=== PATIENT | female | born 1940 | race African-American/Black ===

== ENCOUNTER → 2017-01-10 | Outpatient (CLI) | payer MEDICARE, OTHER ==
--- NOTE | 2017-01-10 18:04 | WOMENS IMAGING REPORT ---
EXAM DESCRIPTION: BILAT SCREENING MAMMO W/CAD COMPLETED DATE/TIME: 01/10/2017 8:44 am REASON FOR STUDY: SCREENING MAMMO Z12.31 ENCNTR SCREEN MAMMOGRAM FOR MALIGNANT NEOPLASM OF ÓSCAR COMPARISON: Multiple since 2008 TECHNIQUE: Standard craniocaudal and mediolateral oblique views of each breast recorded using digita l acquisition. LIMITATIONS: None. FINDINGS: Findings present which are benign by mammographic criteria. No suspicious masses, calcifi cations or architectural distortion. Pertinent benign findings: Stable breast parenchymal scarring in the right lateral breast post lumpec tim. Right axillary surgical clips. Read with the assistance of CAD. .[facility] - R2 Cenova Version 1.3 .[facility] - R2 Cenova Version 1.3 .[facility] - R2 Cenova Version 2.4 .[facility] [place]2 Cenova Version 2.4 .[facility] - R2 Doctorate Of Chiropractic Version 9.2 Benign mammographic findings may include one or more of the following: Smooth masses, popcorn/rim/co arse calcifications, asymmetries, post-procedure changes, and lesions with long-standing stability. IMPRESSION: BENIGN MAMMOGRAPHIC FINDINGS. BIRADS 2 BREAST DENSITY: a. The breasts are almost entirely fatty. BIRAD: 2 BENIGN FINDING(S) RECOMMENDATION: ROUTINE SCREENING COMMENT: The patient has been notified of the results by letter per SA requirements. Additional no tification policies are in place for contacting patient with suspicious or incomplete findings. Quality ID #[id number]: The [employer] recommends an annual screening mammogram for women aged 40 years or over. This facility utilizes a reminder system to ensure that all patients receive reminder letters, and/or direct phone calls for appointments. This includes reminders for routine scr eening mammograms, diagnostic mammograms, or other Breast Imaging Interventions when appropriate. Th is patient will be placed in the appropriate reminder system. The [employer] (ACR) has developed recommendations for screening MRI of the breast s in certain patient populations, to be used in conjunction with mammography. Breast MRI surveillanc e may be appropriate for women with more than 20% lifetime risk of developing breast cancer as deter mined by genetic testing, significant family history of the disease, or history of mantle radiation f or Hodgkins Disease. ACR Practice Guidelines 2008. TECHNICAL DOCUMENTATION: FINDING NUMBER: (1) ASSESSMENT: (1) JOB ID: [id number] [employer]- All Rights Reserved
== END ==
LOC: WI 08:17
PROVIDERS: ATTEND Specialist
DX: Z12.31 Encounter for screening mammogram for malignant neoplasm of breast (principal)
CPT/HCPCS: 77067; G0202

== ENCOUNTER → 2018-02-12 | Outpatient (CLI) | payer MEDICARE, OTHER ==
[2018-02-12 13:01] LABS: ANION GAP 10 (5-19); BLOOD UREA NITROGEN 15 mg/dL (7-20); CARBON DIOXIDE 32 mmol/L (22-30); CHLORIDE 102 mmol/L (98-107); GLUCOSE 101 mg/dL (75-110); POTASSIUM 4.5 mmol/L (3.6-5.0); SODIUM 143.6 mmol/L (137-145)
== END ==
LOC: OD 11:35
PROVIDERS: ATTEND Internal Medicine Nephrology
DX: N18.3 Chronic kidney disease, stage 3 (moderate) (principal)
CPT/HCPCS: 36415; 80048

== ENCOUNTER → 2018-03-05 | Outpatient (CLI) | payer MEDICARE, OTHER ==
--- NOTE | 2018-03-05 14:29 | RADIOLOGY REPORT (SQ) ---
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 TECHNIQUE: Images of the axial and proximal appendicular skeleton are obtained, along with lateral s kull and frontal chest films. LIMITATIONS: None. FINDINGS: AP CHEST: No bony findings. Chronic pulmonary scarring. Nodule in the left lung currentl y measures 14.7 mm, prior measurement 10.4 mm. LATERAL SKULL: No worrisome bone lesions. AP BOTH HUMERI: No worrisome bone lesions. TWO-VIEW LUMBAR SPINE: No worrisome bone lesions. TWO-VIEW THORACIC SPINE: No worrisome bone lesions. AP PELVIS: No worrisome bone lesions. AP BOTH FEMURS: No worrisome bone lesions. OTHER: No other significant finding. IMPRESSION: NO WORRISOME BONE LESIONS. NODULE IN THE LEFT LUNG HAS INCREASED IN SIZE SINCE NOVEMBER 2014. TECHNICAL DOCUMENTATION: JOB ID: [id number] [employer]- All Rights Reserved Reading location - IP/workstation name: [facility]
== END ==
LOC: RAD 11:54
PROVIDERS: ATTEND Internal Medicine Hematology & Oncology
DX: C90.00 Multiple myeloma not having achieved remission (principal)
CPT/HCPCS: 77075

== ENCOUNTER 2018-04-29 17:51 | Inpatient (IN) | payer MEDICARE, OTHER ==
[2018-04-29 18:45] LABS: ABSOLUTE EOSINOPHILS # (AUTO) 0.3 10^3/uL (0.0-0.6); ABSOLUTE LYMPHOCYTES (AUTO) 1.4 10^3/uL (0.5-4.7); ABSOLUTE MONOCYTES (AUTO) 1.6 10^3/uL (0.1-1.4); ABSOLUTE NEUT (AUTO) 9.6 10^3/uL (1.7-8.2); BASOPHILS % (AUTO) 0.2 % (0-2); EOSINOPHILS % (AUTO) 2.5 % (0-6); HEMATOCRIT 30.2 % (36.0-47.0); HEMOGLOBIN 9.9 g/dL (12.0-15.5); LYMPHOCYTES % (AUTO) 11.1 % (13-45); MEAN CORPUSCULAR HEMOGLOBIN 29.3 pg (27.0-33.4); MEAN CORPUSCULAR HGB CONC 32.6 g/dL (32.0-36.0); MEAN CORPUSCULAR VOLUME 90 fl (80-97); PLATELET COUNT 370 10^3/uL (150-450); RED BLOOD COUNT 3.37 10^6/uL (3.72-5.28); RED CELL DISTRIBUTION WIDTH 13.5 % (11.5-14.0); SEGMENTED NEUTROPHILS % (AUTO) 74.2 % (42-78); TOTAL CELLS COUNTED % (AUTO) 100 %; VENOUS BLOOD BASE EXCESS 1.8 mmol/L; VENOUS BLOOD HCO3 28.1 mmol/L (20-32); VENOUS BLOOD PCO2 51.5 mmHg (35-63); VENOUS BLOOD PH 7.36 (7.30-7.42); WHITE BLOOD COUNT 12.9 10^3/uL (4.0-10.5)
[2018-04-29 18:48] LABS: INTERNATIONAL RATION (INR) 0.97; PROTHROMBIN TIME 13.4 SEC (11.4-15.4)
[2018-04-29 18:52] LABS: ALANINE AMINOTRANSFERASE 19 U/L (9-52); ALBUMIN 3.6 g/dL (3.5-5.0); ALKALINE PHOSPHATASE 81 U/L (38-126); ANION GAP 10 (5-19); ASPARTATE AMINO TRANSFERASE 47 U/L (14-36); BILIRUBIN,DIRECT 0.4 mg/dL (0.0-0.4); BILIRUBIN,TOTAL 1.6 mg/dL (0.2-1.3); BLOOD UREA NITROGEN 41 mg/dL (7-20); CALCIUM 9.4 mg/dL (8.4-10.2); CARBON DIOXIDE 31 mmol/L (22-30); CHLORIDE 98 mmol/L (98-107); GLUCOSE 136 mg/dL (75-110); POTASSIUM 3.3 mmol/L (3.6-5.0); TOTAL PROTEIN 6.5 g/dL (6.3-8.2)
--- NOTE | 2018-04-29 19:14 | RADIOLOGY REPORT (SQ) ---
EXAM DESCRIPTION: CT HEAD WITHOUT COMPLETED DATE/TIME: 04/29/2018 7:04 pm REASON FOR STUDY: ams COMPARISON: None. TECHNIQUE: Axial images acquired through the brain without intravenous contrast. Images reviewed wi th bone, brain and subdural windows. Additional sagittal and coronal reconstructions were generated. Images stored on PACS. All CT scanners at this facility use dose modulation, iterative reconstruction, and/or weight based d osing when appropriate to reduce radiation dose to as low as reasonably achievable (ALARA). [facility]: Dose Right [facility]: CareDose [facility]: Dose Right [facility]: Teradose 4D [facility]: Smart SunLink RADIATION DOSE: CT Rad equipment meets quality standard of care and radiation dose reduction techniq ues were employed. CTDIvol: 53.2 mGy. DLP: 1044 mGy-cm. mGy. LIMITATIONS: None. FINDINGS: VENTRICLES: Normal size and contour. CEREBRUM: 1.6 x 1.6 cm left-sided calcified planum sphenoidale mass likely meningioma. No significan t mass effect. No midline shift. Normal driscoll/white matter differentiation. No areas of low density in the white matter. CEREBELLUM: No masses. No hemorrhage. No alteration of density. No evidence for acute infarction. EXTRAAXIAL SPACES: No fluid collections. No masses. ORBITS AND GLOBE: No intra- or extraconal masses. Normal contour of globe without masses. CALVARIUM: No fracture. PARANASAL SINUSES: No fluid or mucosal thickening. SOFT TISSUES: No mass or hematoma. OTHER: No other significant finding. 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 No acute intracranial process. EVIDENCE OF ACUTE STROKE: NO. COMMENT: Quality ID # [id number]: Final reports with documentation of one or more dose reduction techniques (e.g., Automated exposure control, adjustment of the mA and/or kV according to patient size, use of iterative reconstruction technique) TECHNICAL DOCUMENTATION: JOB ID: [id number] [employer]- All Rights Reserved Reading location - IP/workstation name: [email or web address]
--- NOTE | 2018-04-29 19:23 | RADIOLOGY REPORT (SQ) ---
EXAM DESCRIPTION: CHEST 2 VIEWS COMPLETED DATE/TIME: 04/29/2018 7:12 pm REASON FOR STUDY: ams COMPARISON: 08/29/2012 EXAM PARAMETERS: NUMBER OF VIEWS: two views TECHNIQUE: Digital Frontal and Lateral radiographic views of the chest acquired. RADIATION DOSE: NA LIMITATIONS: none FINDINGS: LUNGS AND PLEURA: Chronic scarring of the right upper lobe. No acute opacities. MEDIASTINUM AND HILAR STRUCTURES: No masses or contour abnormalities. HEART AND VASCULAR STRUCTURES: Heart normal size. No evidence for failure. BONES: No acute findings. HARDWARE: None in the chest. OTHER: No other significant finding. IMPRESSION: Chronic changes. No acute process. TECHNICAL DOCUMENTATION: JOB ID: [id number] [employer]- All Rights Reserved Reading location - IP/workstation name: [email or web address]
[2018-04-29 19:57] LABS: APPEARANCE,URINE SLIGHTLY-CLOUDY; BILIRUBIN,URINE NEGATIVE (NEGATIVE); COLOR,URINE YELLOW; GLUCOSE, URINE NEGATIVE (NEGATIVE); KETONES,URINE NEGATIVE (NEGATIVE); LEUKOCYTE ESTERASE,URINE NEGATIVE (NEGATIVE); NITRITE,URINE NEGATIVE (NEGATIVE); PROTEIN,URINE NEGATIVE (NEGATIVE); URINE SPECIFIC GRAVITY 1.013; UROBILINOGEN,URINE NEGATIVE mg/dL (<2.0)
[2018-04-29] MEDS ORDERED: NORMAL SALINE 500 ML IV ONE (19:57)
[2018-04-29] MEDS ORDERED: NORMAL SALINE 1000 ML 1,000 ML IV ONE (19:57)
[2018-04-29 20:56] LABS: URINE AMPHETAMINES SCREEN NEGATIVE; URINE BARBITURATES SCREEN NEGATIVE; URINE BENZODIAZEPINES SCREEN UNCONFIRMED POSITIVE; URINE COCAINE SCREEN NEGATIVE; URINE MARIJUANA (THC) SCREEN NEGATIVE; URINE METHADONE SCREEN NEGATIVE; URINE PHENCYCLIDINE SCREEN NEGATIVE
[2018-04-29] MEDS ORDERED: OXYCODONE HCL IR 5 MG TABLET PO PRN (21:40)
[2018-04-29] MEDS ORDERED: MAG HYDROX/AL HYDROX/SIMETH SUSP 30 ML UDCUP PO PRN (21:42)
[2018-04-29] MEDS ORDERED: IPRATROPIUM/ALBUTEROL 0.5-2.5 MG/3 ML AMPUL NEB PRN (21:42)
[2018-04-29] MEDS ORDERED: MAGNESIUM HYDROXIDE SUSP 30 ML UDCUP PO PRN (21:42)
[2018-04-29] MEDS ORDERED: NORMAL SALINE 1000 ML 1,000 ML IV SCH (21:45)
--- NOTE | 2018-04-29 21:50 | ER Document Report ---
ED General - General Chief Complaint: Leg Pain Stated Complaint: ALTERED MENTAL STATUS Time Seen by Provider: 04/29/18 18:22 TRAVEL OUTSIDE OF THE [place] IN LAST 30 DAYS: No - HPI Patient complains to provider of: Altered mental status left leg pain Notes: Patient coming in for altered mental status left leg pain. Patient states she had a total knee replacement on the 18th of the month now is having pain in the leg has been ongoing for the last 2 days. Otherwise patient is a no x1. Patient is aware that she is in also ER however is not aware of the year stating is 1917 where the president stating that you are already been and denies a clear why she came to the ER today. EMS reports the patient has not been acting like self according to family member. Most later during the patient's visit her was available to the patient has been confused has had physical therapy approximately 3 times however has been unable to get out of bed and also has had decreased p.o. intake of food and liquids. States patient has been compliant with her pain medication is not mi ssed any dosage. Patient otherwise is resting comfortably no signs of any obvious distress upon my evaluation. - Related Data Allergies/Adverse Reactions: No Known Allergies Allergy (Verified 04/29/18 17:54) Past Medical History - Social History Smoking Status: Unknown if Ever Smoked Chew tobacco use (# tins/day): No Frequency of alcohol use: None Drug Abuse: None Family History: Reviewed & Not Pertinent Patient has suicidal ideation: No Patient has homicidal ideation: No - Past Medical History Cardiac Medical History: Reports: Hx Hypercholesterolemia, Hx Hypertension - meds 34 yrs Denies: Hx Coronary Artery Disease, Hx Heart Attack Pulmonary Medical History: Denies: Hx Asthma, Hx Bronchitis, Hx COPD, Hx Pneumonia Neurological Medical History: Denies: Hx Cerebrovascular Accident, Hx Seizures Renal/ Medical History: Denies: Hx Peritoneal Dialysis Musculoskeletal Medical History: Reports Hx Arthritis - knees Past Surgical History: Reports: Hx Breast Surgery - lumpectomy right, Hx Orthopedic Surgery - ltkr - Immunizations Hx Diphtheria, Pertussis, Tetanus Vaccination: No Review of Systems - Review of Systems -: Yes ROS unobtainable due to patient's medical condition - Altered mental status Physical Exam - Vital signs Vitals: Resp 22 H 04/29/18 18:05 Interpretation: Normal - General General appearance: Appears well, Alert - HEENT Head: Normocephalic, Atraumatic Eyes: Normal Pupils: PERRL - Respiratory Respiratory status: No respiratory distress Chest status: Nontender Breath sounds: Normal Chest palpation: Normal - Cardiovascular Rhythm: Regular Heart sounds: Normal auscultation Murmur: No - Abdominal Inspection: Normal Distension: No distension Bowel sounds: Normal Tenderness: Nontender Organomegaly: No organomegaly - Back Back: Normal, Nontender - Extremities General upper extremity: Normal inspection, Nontender, Normal color, Normal ROM, Normal temperature General lower extremity: Normal weight bearing, Other - Right leg unaffected. Patient's left leg does have postsurgical scars with a surgical dressing in place. This was removed showing no signs of purulent drainage I am unable to express any purulent material along the staple line. There is various amounts of ecchymosis around the knee the leg itself is warm however the temperature does not vary from the surgical site to the distal or proximal leg to touch in the left leg is entirely swollen range of motion can be performed with the patient moving her leg to approximately 100 degrees somewhat painful - Neurological Neuro grossly intact: Yes Cognition: Normal Orientation: Disoriented to person, Disoriented to time, Disoriented to events [place] Coma Scale Eye Opening: Spontaneous Hallie Coma Scale Verbal: Oriented [place] Coma Scale Motor: Obeys Commands [place] Coma Scale Total: 15 Speech: Normal Motor strength normal: LUE, RUE, LLE, RLE Sensory: Normal - Psychological Associated symptoms: Normal affect, Normal mood - Skin Skin Temperature: Warm Skin Moisture: Dry Skin Color: Normal Course - Re-evaluation Re-evalutation: 04/29/18 23:09 Laboratory studies show slight elevation in the patient's BUN/creatinine patient does have a chronic renal insufficiency more likely this is underlying dehydration. Patient laboratory studies not show any overt signs of infection there is no pneumonia chest x-ray no UTI. Did not believe that the surgical wound itself is infected at this time. Patient is positive for opiates and benzodiazepines which are not on the patient's medication list that I received. More likely altered mental status and confusion that the family is concerned about is medication related. Because of the continued altered mental status I did discuss the case with the hospital staff who was at bedside evaluate the patient concern for the swelling of the knee requested a possible CT scan and consult with orthopedics I discussed the case with Dr. Lagunas on the phone. Highly doubt that the patient has an infected knee at this juncture and does not recommend CT scan agrees to consult on the patient was admitted to the hospital staff and states if there is any signs of infection or need for transfer this will address this in the morning. Hospitalist agrees to admit the patient to the telemetry - Vital Signs Vital signs: Temp Pulse Resp BP Pulse Ox 97.9 F 22 H 141/62 H 100 04/29/18 18:18 04/29/18 22:01 04/29/18 22:00 04/29/18 22:01 - Laboratory Result Diagrams: 04/29/18 18:05 04/29/18 18:05 Laboratory results interpreted by me: 04/29/18 04/29/18 04/29/18 18:05 18:05 18:05 WBC 12.9 H RBC 3.37 L Hgb 9.9 L Hct 30.2 L Lymphocytes % 11.1 L Absolute Neutrophils 9.6 H Absolute Monocytes 1.6 H Potassium 3.3 L Carbon Dioxide 31 H BUN 41 H Creatinine 2.33 H Est GFR ( Amer) 24 L Est GFR (Non-Af Amer) 20 L Glucose 136 H POC Glucose Magnesium Total Bilirubin 1.6 H AST 47 H Creatine Kinase 320 H 04/29/18 04/29/18 18:05 18:51 WBC RBC Hgb Hct Lymphocytes % Absolute Neutrophils Absolute Monocytes Potassium Carbon Dioxide BUN Creatinine Est GFR ( Amer) Est GFR (Non-Af Amer) Glucose POC Glucose 129 H Magnesium 2.5 H Total Bilirubin AST Creatine Kinase Discharge - Discharge Clinical Impression: Altered mental status, History of left knee replacement, Dehydration, Acute on chronic renal insufficiency Condition: Good Disposition: ADMITTED INPATIENT Admitting Provider: Deidra June
[2018-04-29] MEDS ORDERED: NORMAL SALINE 1000 ML 1,000 ML IV PRN (22:00)
[2018-04-29] MEDS ORDERED: POTASSIUM CHLORIDE 10 MEQ CAPSULE.ER PO ONE (22:05)
[2018-04-29] MEDS: ATORVASTATIN CALCIUM 10 MG TABLET PO SCH (22:08)
[2018-04-29] MEDS: HEPARIN SOD (PORCINE) 5,000 UNIT/ML 1 ML SYRINGE SUBCUT SCH (22:09)
--- NOTE | 2018-04-29 22:10 | EKG REPORT ---
SEVERITY:- BORDERLINE ECG - SINUS RHYTHM PROBABLE LEFT ATRIAL ABNORMALITY : Confirmed by: David Dang MD 29-Apr-2018 22:10:11
[2018-04-30 00:55] LABS: CREATINE KINASE MB 0.78 ng/mL (<4.55); TROPONIN I 0.02 ng/mL
[2018-04-30] MEDS: ACETAMINOPHEN 325 MG TABLET PO PRN ×3 (05:57→17:28)
[2018-04-30] MEDS: HEPARIN SOD (PORCINE) 5,000 UNIT/ML 1 ML SYRINGE SUBCUT SCH ×3 (05:57→21:57)
--- NOTE | 2018-04-30 06:15 | PDOC H&P ---
History of Present Illness Admission Date/PCP: 04/29/18 21:50 ADORE MOHR MD Patient complains of: Confusion History of Present Illness: CAMILLE LOVE is a 77 year old female with a past medical history of hypertension who is postop day 6 from a left total knee at [facility]. She was discharged home with her who is noted confusion and poor p.o. intake over the last 48 hours prompting evaluation emergency room where she is found to have delirium, pain and swelling to the left knee without dehiscence, leukocytosis without fever, hypokalemia and acute renal failure. Patient denies headache, blurred vision, focal weakness, chest pain nausea vomiting shortness of breath. Patient's is at bedside who admits to compliance with medication regiment including benzodiazepine and oxycodone as needed but given as scheduled. She receives supportive care and referred to the hospitalist for admission. 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 Hematology: Denies: Anemia Past Surgical History Past Surgical History: Reports: Orthopedic Surgery - ltkr Social History Information Source: Relative, [facility] Records Lives with: Spouse/Significant other Smoking Status: Never Smoker Frequency of Alcohol Use: None Drugs: None - Advance Directive Resuscitation Status: Full Code Family History Family History: Other - Unobtainable Parental Family History Reviewed: No Children Family History Reviewed: No - Unobtainable Sibling(s) Family History Reviewed.: No - Unobtainable Medication/Allergy Home Medications: Amlodipine Besylate [Norvasc 5 mg Tablet] 5 mg PO DAILY 08/29/12 Aspirin [Ecotrin 81 mg EC Tablet] 81 mg PO DAILY 08/29/12 Gabapentin [Neurontin 300 Mg Capsule] 900 mg PO TID 08/29/12 Pravastatin Sodium [Pravachol] 20 mg PO DAILY 08/29/12 Cholecalciferol (Vitamin D3) [Vitamin D] 2,000 unit PO DAILY 04/29/18 Latanoprost/Pf [Latanoprost 0.005% Eye Drop] 7.5 ml OP QHS 04/29/18 Losartan/Hydrochlorothiazide [Hyzaar 100-12.5 Tablet] 1 each PO DAILY 04/29/18 Oxycodone HCl [Oxy-Ir 5 mg Tablet] 5 mg PO Q6HP PRN 04/29/18 Timolol [Betimol] 5 ml OP DAILY 04/29/18 Allergies/Adverse Reactions: No Known Allergies Allergy (Verified 04/29/18 17:54) Review of Systems ROS unobtainable: Due to mental status - Delirium Physical Exam Vital Signs: Temp Pulse Resp BP Pulse Ox 98.9 F 79 17 129/61 H 96 04/30/18 04:20 04/30/18 04:20 04/30/18 04:20 04/30/18 04:20 04/30/18 04:20 Intake & Output 04/28/18 04/29/18 04/30/18 11:59 11:59 11:59 Intake Total 500 Balance 500 Weight 77 kg General appearance: PRESENT: cooperative, disheveled, mild distress, obese, well-developed, well-nourished Head exam: PRESENT: atraumatic, normocephalic Eye exam: PRESENT: conjunctiva pink, EOMI, PERRLA. ABSENT: scleral icterus Ear exam: PRESENT: normal external ear exam Mouth exam: PRESENT: moist, tongue midline Neck exam: ABSENT: carotid bruit, JVD, lymphadenopathy, thyromegaly Respiratory exam: PRESENT: clear to auscultation rosemary. ABSENT: rales, rhonchi, wheezes Cardiovascular exam: PRESENT: RRR. ABSENT: diastolic murmur, rubs, systolic murmur Pulses: PRESENT: normal dorsalis pedis pul Vascular exam: PRESENT: normal capillary refill GI/Abdominal exam: PRESENT: normal bowel sounds, soft. ABSENT: distended, gua rding, mass, organolmegaly, rebound, tenderness Rectal exam: PRESENT: deferred Extremities exam: PRESENT: full ROM, joint swelling - Left knee swelling but without dehiscence, tenderness, +1 edema. ABSENT: calf tenderness, pedal edema Neurological exam: PRESENT: alert, altered, awake, oriented to person, oriented to place, oriented to situation, CN II-XII grossly intact. ABSENT: oriented to time Psychiatric exam: PRESENT: normal mood, unusual affect. ABSENT: homicidal ideation, suicidal ideation Skin exam: PRESENT: dry, erythema, intact, warm. ABSENT: cyanosis, rash Results Laboratory Results: 04/29/18 18:05 04/29/18 18:05 04/29/18 04/29/18 04/29/18 18:05 18:05 18:05 WBC 12.9 H RBC 3.37 L Hgb 9.9 L Hct 30.2 L MCV 90 MCH 29.3 MCHC 32.6 RDW 13.5 Plt Count 370 Seg Neutrophils % 74.2 Lymphocytes % 11.1 L Monocytes % 12.0 Eosinophils % 2.5 Basophils % 0.2 Absolute Neutrophils 9.6 H Absolute Lymphocytes 1.4 Absolute Monocytes 1.6 H Absolute Eosinophils 0.3 Absolute Basophils 0.0 VBG pH VBG pCO2 VBG HCO3 VBG Base Excess Sodium 139.0 Potassium 3.3 L Chloride 98 Carbon Dioxide 31 H Anion Gap 10 BUN 41 H Creatinine 2.33 H Est GFR ( Amer) 24 L Est GFR (Non-Af Amer) 20 L Glucose 136 H Lactic Acid 1.1 Calcium 9.4 Magnesium Total Bilirubin 1.6 H AST 47 H ALT 19 Alkaline Phosphatase 81 Total Protein 6.5 Albumin 3.6 TSH Urine Color Urine Appearance Urine pH Ur Specific [place] Urine Protein Urine Glucose (UA) Urine Ketones Urine Blood Urine Nitrite Ur Leukocyte Esterase Urine WBC (Auto) Urine RBC (Auto) 04/29/18 04/29/18 04/29/18 18:05 18:05 18:05 WBC RBC Hgb Hct MCV MCH MCHC RDW Plt Count Seg Neutrophils % Lymphocytes % Monocytes % Eosinophils % Basophils % Absolute Neutrophils Absolute Lymphocytes Absolute Monocytes Absolute Eosinophils Absolute Basophils VBG pH 7.36 VBG pCO2 51.5 VBG HCO3 28.1 VBG Base Excess 1.8 Sodium Potassium Chloride Carbon Dioxide Anion Gap BUN Creatinine Est GFR ( Amer) Est GFR (Non-Af Amer) Glucose Lactic Acid Calcium Magnesium 2.5 H Total Bilirubin AST ALT Alkaline Phosphatase Total Protein Albumin TSH 0.64 Urine Color Urine Appearance Urine pH Ur Specific [place] Urine Protein Urine Glucose (UA) Urine Ketones Urine Blood Urine Nitrite Ur Leukocyte Esterase Urine WBC (Auto) Urine RBC (Auto) 04/29/18 19:33 WBC RBC Hgb Hct MCV MCH MCHC RDW Plt Count Seg Neutrophils % Lymphocytes % Monocytes % Eosinophils % Basophils % Absolute Neutrophils Absolute Lymphocytes Absolute Monocytes Absolute Eosinophils Absolute Basophils VBG pH VBG pCO2 VBG HCO3 VBG Base Excess Sodium Potassium Chloride Carbon Dioxide Anion Gap BUN Creatinine Est GFR ( Amer) Est GFR (Non-Af Amer) Glucose Lactic Acid Calcium Magnesium Total Bilirubin AST ALT Alkaline Phosphatase Total Protein Albumin TSH Urine Color YELLOW Urine Appearance SLIGHTLY-CLOUDY Urine pH 5.0 Ur Specific [place] 1.013 Urine Protein NEGATIVE Urine Glucose (UA) NEGATIVE Urine Ketones NEGATIVE Urine Blood NEGATIVE Urine Nitrite NEGATIVE Ur Leukocyte Esterase NEGATIVE Urine WBC (Auto) 1 Urine RBC (Auto) 1 04/29/18 04/29/18 04/30/18 18:05 18:05 00:17 Creatine Kinase 320 H 350 H CK-MB (CK-2) Troponin I 0.023 04/30/18 00:17 Creatine Kinase CK-MB (CK-2) 0.78 Troponin I 0.020 Impressions: Chest X-Ray 04/29/18 18:41 IMPRESSION: Chronic changes. No acute process. 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 No acute intracranial process. EVIDENCE OF ACUTE STROKE: NO. Assessment & Plan - Diagnosis (1) Encephalopathy Is this a current diagnosis for this admission?: Yes Plan: Likely secondary to scheduled rather than as needed oxycodone and benzodiazep ine. Supportive care with reduction in oxycodone and benzodiazepine frequency (2) Acute renal failure Is this a current diagnosis for this admission?: Yes Plan: Appears prerenal, IV fluid challenge, avoid nephrotoxic meds and doses reevaluate chemistry (3) Hypokalemia Is this a current diagnosis for this admission?: Yes Plan: Evaluate magnesium, replete both as needed follow-up chemistry (4) History of left knee replacement Is this a current diagnosis for this admission?: Yes Plan: Postop day 6 of the left total knee, some joint swelling and persistent pain, consult orthopedic surgery. - Time Time Spent: 50 to 70 Minutes - Inpatient Certification Medical Necessity: Need Close Monitoring Due to Risk of Patient Decompensation
[2018-04-30 06:46] LABS: ABSOLUTE EOSINOPHILS # (AUTO) 0.2 10^3/uL (0.0-0.6); ABSOLUTE LYMPHOCYTES (AUTO) 0.9 10^3/uL (0.5-4.7); ABSOLUTE MONOCYTES (AUTO) 1.1 10^3/uL (0.1-1.4); ABSOLUTE NEUT (AUTO) 8.2 10^3/uL (1.7-8.2); BASOPHILS % (AUTO) 0.2 % (0-2); EOSINOPHILS % (AUTO) 2.2 % (0-6); HEMOGLOBIN 9.2 g/dL (12.0-15.5); LYMPHOCYTES % (AUTO) 8.8 % (13-45); MEAN CORPUSCULAR HEMOGLOBIN 29.5 pg (27.0-33.4); MEAN CORPUSCULAR HGB CONC 33.1 g/dL (32.0-36.0); MEAN CORPUSCULAR VOLUME 89 fl (80-97); MONOCYTES % (AUTO) 10.3 % (3-13); PLATELET COUNT 327 10^3/uL (150-450); RED BLOOD COUNT 3.14 10^6/uL (3.72-5.28); RED CELL DISTRIBUTION WIDTH 13.2 % (11.5-14.0); SEGMENTED NEUTROPHILS % (AUTO) 78.5 % (42-78); TOTAL CELLS COUNTED % (AUTO) 100 %; WHITE BLOOD COUNT 10.4 10^3/uL (4.0-10.5)
[2018-04-30 07:08] LABS: ANION GAP 11 (5-19); BLOOD UREA NITROGEN 34 mg/dL (7-20); CALCIUM 8.8 mg/dL (8.4-10.2); CARBON DIOXIDE 26 mmol/L (22-30); CHLORIDE 105 mmol/L (98-107); GLUCOSE 116 mg/dL (75-110); POTASSIUM 3.8 mmol/L (3.6-5.0); SODIUM 141.6 mmol/L (137-145)
[2018-04-30 07:17] LABS: CREATINE KINASE MB 0.78 ng/mL (<4.55); TROPONIN I 0.025 ng/mL
--- NOTE | 2018-04-30 08:52 | XCELERA REPORT ---
[address] [id number] Lower Extremity Venous Evaluation Procedure: Color flow and duplex imaging of the veins of the left lower extremity as well as the right Common Femoral vein. Right Sided Venous Evaluation The right common femoral vein is fully compressible. Spontaneous and phasic flow is present in the right common femoral vein. Left Sided Venous Evaluation Avascular lucencies in the subcutaneous tissues of the leg. Normal vessel filling wall to wall, compression and augmentation as well as Colour flow down to the infrageniculate veins. Critical Findings Called in to Dr Garner at about 2100 hours. Interpretation Summary No duplex evidence of DVT or obstruction in the left lower extremity nor in the right Common Femoral vein. Subcutaneous edema noted in the left leg. Name: CAMILLE LOVE Age: 77 yrs Gender: Female : 1940 Patient Status: Emergency Patient Location: ER Study Date: 04/29/2018 07:48 PM Reason For Study: pain left leg Ordering Physician: KAROLYN POLANCO Performed By: Zoltan Daniels : KAROLYN POLANCO > Hussain Dewitt
[2018-04-30] MEDS: AMLODIPINE BESYLATE 5 MG TABLET PO SCH (10:36)
[2018-04-30] MEDS: NORMAL SALINE 1000 ML 1,000 ML IV PRN ×2 (10:36→17:30)
[2018-04-30] MEDS: ASPIRIN 81 MG TABLET, ENT COATED PO SCH (10:37)
[2018-04-30] MEDS: GABAPENTIN 300 MG CAPSULE PO SCH ×3 (10:38→17:28)
[2018-04-30] MEDS: CHOLECALCIFEROL (D3) 1,000 UNIT TABLET PO SCH (10:38)
--- NOTE | 2018-04-30 11:32 | PDOC PROGRESS REPORT ---
Subjective Progress Note for:: 04/30/18 Subjective:: This is 77 years old black female patient with past medical history of hypertension, hyperlipidemia presented with chief complaint of altered mental status. In a patient also found to have acute kidney injury, and hypokalemia of note patient had had left knee total arthroplasty at [facility] about 7 days ago. This morning I seen patient sitting by the bedside and participating with physical therapy her involved knee is swollen and tender I consulted Dr. De La Paz to evaluate the patient. Her morning labs shows corrected hypokalemia and her creatinine is trending down. Reason For Visit: AMS ARF KNEE PAIN Physical Exam Vital Signs: Temp Pulse Resp BP Pulse Ox 97.4 F 81 16 134/58 H 99 04/30/18 08:15 04/30/18 08:15 04/30/18 08:15 04/30/18 08:15 04/30/18 08:15 Intake & Output 04/29/18 04/30/18 05/01/18 06:59 06:59 06:59 Intake Total 500 Balance 500 Weight 77 kg General appearance: PRESENT: no acute distress Eye exam: PRESENT: conjunctiva pink Mouth exam: PRESENT: moist Neck exam: ABSENT: carotid bruit, JVD, lymphadenopathy, thyromegaly Respiratory exam: PRESENT: clear to auscultation rosemary. ABSENT: rales, rhonchi, wheezes Cardiovascular exam: PRESENT: RRR. ABSENT: diastolic murmur, rubs, systolic murmur GI/Abdominal exam: PRESENT: normal bowel sounds, soft. ABSENT: distended, guarding, mass, organolmegaly, rebound, tenderness Extremities exam: PRESENT: other - Postop #7 for left total knee arthroplasty. Metal clips are in the knee looks like swollen and tender. Neurological exam: PRESENT: alert, awake, oriented to situation Psychiatric exam: PRESENT: normal mood Results Laboratory Results: 04/30/18 06:18 04/30/18 06:18 04/29/18 04/29/18 04/29/18 18:05 18:05 18:05 WBC 12.9 H RBC 3.37 L Hgb 9.9 L Hct 30.2 L MCV 90 MCH 29.3 MCHC 32.6 RDW 13.5 Plt Count 370 Seg Neutrophils % 74.2 Lymphocytes % 11.1 L Monocytes % 12.0 Eosinophils % 2.5 Basophils % 0.2 Absolute Neutrophils 9.6 H Absolute Lymphocytes 1.4 Absolute Monocytes 1.6 H Absolute Eosinophils 0.3 Absolute Basophils 0.0 VBG pH VBG pCO2 VBG HCO3 VBG Base Excess Sodium 139.0 Potassium 3.3 L Chloride 98 Carbon Dioxide 31 H Anion Gap 10 BUN 41 H Creatinine 2.33 H Est GFR ( Amer) 24 L Est GFR (Non-Af Amer) 20 L Glucose 136 H Lactic Acid 1.1 Calcium 9.4 Magnesium Total Bilirubin 1.6 H AST 47 H ALT 19 Alkaline Phosphatase 81 Total Protein 6.5 Albumin 3.6 TSH Urine Color Urine Appearance Urine pH Ur Specific [place] Urine Protein Urine Glucose (UA) Urine Ketones Urine Blood Urine Nitrite Ur Leukocyte Esterase Urine WBC (Auto) Urine RBC (Auto) 04/29/18 04/29/18 04/29/18 18:05 18:05 18:05 WBC RBC Hgb Hct MCV MCH MCHC RDW Plt Count Seg Neutrophils % Lymphocytes % Monocytes % Eosinophils % Basophils % Absolute Neutrophils Absolute Lymphocytes Absolute Monocytes Absolute Eosinophils Absolute Basophils VBG pH 7.36 VBG pCO2 51.5 VBG HCO3 28.1 VBG Base Excess 1.8 Sodium Potassium Chloride Carbon Dioxide Anion Gap BUN Creatinine Est GFR ( Amer) Est GFR (Non-Af Amer) Glucose Lactic Acid Calcium Magnesium 2.5 H Total Bilirubin AST ALT Alkaline Phosphatase Total Protein Albumin TSH 0.64 Urine Color Urine Appearance Urine pH Ur Specific [place] Urine Protein Urine Glucose (UA) Urine Ketones Urine Blood Urine Nitrite Ur Leukocyte Esterase Urine WBC (Auto) Urine RBC (Auto) 04/29/18 04/30/18 04/30/18 19:33 06:18 06:18 WBC 10.4 RBC 3.14 L Hgb 9.2 L Hct 28.0 L MCV 89 MCH 29.5 MCHC 33.1 RDW 13.2 Plt Count 327 Seg Neutrophils % 78.5 H Lymphocytes % 8.8 L Monocytes % 10.3 Eosinophils % 2.2 Basophils % 0.2 Absolute Neutrophils 8.2 Absolute Lymphocytes 0.9 Absolute Monocytes 1.1 Absolute Eosinophils 0.2 Absolute Basophils 0.0 VBG pH VBG pCO2 VBG HCO3 VBG Base Excess Sodium 141.6 Potassium 3.8 Chloride 105 Carbon Dioxide 26 Anion Gap 11 BUN 34 H Creatinine 1.62 H Est GFR ( Amer) 37 L Est GFR (Non-Af Amer) 31 L Glucose 116 H Lactic Acid Calcium 8.8 Magnesium Total Bilirubin AST ALT Alkaline Phosphatase Total Protein Albumin TSH Urine Color YELLOW Urine Appearance SLIGHTLY-CLOUDY Urine pH 5.0 Ur Specific [place] 1.013 Urine Protein NEGATIVE Urine Glucose (UA) NEGATIVE Urine Ketones NEGATIVE Urine Blood NEGATIVE Urine Nitrite NEGATIVE Ur Leukocyte Esterase NEGATIVE Urine WBC (Auto) 1 Urine RBC (Auto) 1 04/29/18 04/29/18 04/30/18 18:05 18:05 00:17 Creatine Kinase 320 H 350 H CK-MB (CK-2) Troponin I 0.023 04/30/18 04/30/18 04/30/18 00:17 06:18 06:18 Creatine Kinase 350 H CK-MB (CK-2) 0.78 0.78 Troponin I 0.020 0.025 Impressions: Chest X-Ray 04/29/18 18:41 IMPRESSION: Chronic changes. No acute process. 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 No acute intracranial process. EVIDENCE OF ACUTE STROKE: NO. Assessment & Plan - Diagnosis (1) AMS due to drug-induced encephalopathy Is this a current diagnosis for this admission?: Yes Plan: Z encephalopathy is due to narcotic analgesics. Currently her mental status is improving. (2) Acute renal failure Is this a current diagnosis for this admission?: Yes Plan: Kidney function is improving. Continue hydration with normal saline. (3) Hypokalemia Is this a current diagnosis for this admission?: Yes Plan: Corrected (4) Postop #7 L knee arthroplasty Is this a current diagnosis for this admission?: Yes Plan: Since the knee shows some swelling and inflammation orthopedic surgeon consulted. Physical therapist recommended short-term acute rehab placement.
[2018-04-30 12:55] LABS: CREATINE KINASE MB 0.77 ng/mL (<4.55); TROPONIN I 0.017 ng/mL
[2018-04-30] MEDS: OXYCODONE HCL IR 5 MG TABLET PO PRN ×2 (14:06→23:39)
[2018-04-30] MEDS: ATORVASTATIN CALCIUM 10 MG TABLET PO SCH (21:57)
[2018-05-01] MEDS: NORMAL SALINE 1000 ML 1,000 ML IV PRN (04:48)
[2018-05-01] MEDS: HEPARIN SOD (PORCINE) 5,000 UNIT/ML 1 ML SYRINGE SUBCUT SCH ×3 (05:53→21:36)
--- NOTE | 2018-05-01 06:40 | PDOC CONSULTATION ---
Consultation Consult Date: 05/01/18 Consult reason:: Status post left total knee arthroplasty April 24, 2018 History of Present Illness Admission Date/PCP: 04/29/18 21:50 ADORE MOHR MD History of Present Illness: CAMILLE LOVE is a 77 year old female Patient is a 77-year-old black female status post left primary total knee arthroplasty in [place] on April 24, 2018. She was subsequently discharged home with home health services the next day. The states that he and his daughter want or unable to get her out of bed. 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 Hematology: Denies: Anemia Past Surgical History Past Surgical History: Reports: Orthopedic Surgery - ltkr Social History Information Source: Patient, H Records Lives with: Spouse/Significant other Smoking Status: Never Smoker Frequency of Alcohol Use: None Drugs: None - Advance Directive Resuscitation Status: Full Code Family History Family History: None, Other - Unobtainable Parental Family History Reviewed: No Children Family History Reviewed: No Sibling(s) Family History Reviewed.: No Medication/Allergy Home Medications: Amlodipine Besylate [Norvasc 5 mg Tablet] 5 mg PO DAILY 08/29/12 Aspirin [Ecotrin 81 mg EC Tablet] 81 mg PO DAILY 08/29/12 Gabapentin [Neurontin 300 Mg Capsule] 900 mg PO Q8 08/29/12 Pravastatin Sodium [Pravachol] 20 mg PO QHS 08/29/12 Cholecalciferol (Vitamin D3) [Vitamin D] 2,000 unit PO Q48H 04/29/18 Losartan/Hydrochlorothiazide [Hyzaar 100-12.5 Tablet] 1 each PO DAILY 04/29/18 Oxycodone HCl [Oxy-Ir 5 mg Tablet] 15 mg PO Q6HP PRN 04/29/18 Timolol [Betimol] 1 drop OU BID 04/29/18 Dorzolamide HCl/Pf [Dorzolamide 2% Eye Drop] 1 drop OU BID 04/30/18 Allergies/Adverse Reactions: No Known Allergies Allergy (Verified 04/29/18 17:54) Review of Systems All systems: as per [facility] Physical Exam Vital Signs: Temp Pulse Resp BP Pulse Ox 36.7 C 73 19 148/66 H 98 04/30/18 23:24 05/01/18 02:00 04/30/18 23:24 04/30/18 23:24 04/30/18 23:24 Intake & Output 04/29/18 04/30/18 05/01/18 06:59 06:59 06:59 Intake Total 500 3577 Output Total 800 Balance 500 2777 Weight 77 kg 83.6 kg Physical Exam: Overweight middle-aged black female lying in bed in modest distress. She is accompanied by her who is in the recliner next to the bed. General appearance: PRESENT: no acute distress, mild distress, well-developed, well-nourished Head exam: PRESENT: normocephalic Respiratory exam: PRESENT: unlabored Cardiovascular exam: PRESENT: RRR Pulses: PRESENT: +1 pedal pulses bilateral Vascular exam: PRESENT: normal capillary refill GI/Abdominal exam: PRESENT: soft Rectal exam: PRESENT: deferred Extremities exam: PRESENT: other - Left knee dressing taken down. The suture line is well approximated melyssa is currently dry. There is a fair amount of dried blood on which is cleaned with peroxide. Surrounding soft tissues with a modest amount of ecchymosis. The wound itself is well approximated and dry wit hout erythema but with ongoing tenderness. A dry OpSite dressing is placed. Neurological exam: PRESENT: alert, awake, oriented to person, oriented to place, oriented to time, oriented to situation. ABSENT: motor sensory deficit Psychiatric exam: PRESENT: appropriate affect, normal mood. ABSENT: homicidal ideation, suicidal ideation Skin exam: PRESENT: dry, intact, warm. ABSENT: cyanosis, rash Results Laboratory Results: 04/30/18 06:18 04/30/18 04/30/18 06:18 06:18 WBC 10.4 RBC 3.14 L Hgb 9.2 L Hct 28.0 L MCV 89 MCH 29.5 MCHC 33.1 RDW 13.2 Plt Count 327 Seg Neutrophils % 78.5 H Lymphocytes % 8.8 L Monocytes % 10.3 Eosinophils % 2.2 Basophils % 0.2 Absolute Neutrophils 8.2 Absolute Lymphocytes 0.9 Absolute Monocytes 1.1 Absolute Eosinophils 0.2 Absolute Basophils 0.0 Sodium 141.6 Potassium 3.8 Chloride 105 Carbon Dioxide 26 Anion Gap 11 BUN 34 H Creatinine 1.62 H Est GFR ( Amer) 37 L Est GFR (Non-Af Amer) 31 L Glucose 116 H Calcium 8.8 04/29/18 04/29/18 04/30/18 18:05 18:05 00:17 Creatine Kinase 320 H 350 H CK-MB (CK-2) Troponin I 0.023 04/30/18 04/30/18 04/30/18 00:17 06:18 06:18 Creatine Kinase 350 H CK-MB (CK-2) 0.78 0.78 Troponin I 0.020 0.025 04/30/18 04/30/18 12:15 12:15 Creatine Kinase 305 H CK-MB (CK-2) 0.77 Troponin I 0.017 Impressions: Chest X-Ray 04/29/18 18:41 IMPRESSION: Chronic changes. No acute process. 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 No acute intracranial process. EVIDENCE OF ACUTE STROKE: NO. Status: Imported from PACS Assessment & Plan - Diagnosis (1) History of left knee replacement Is this a current diagnosis for this admission?: Yes Plan: Patient can be mobilized with physical therapy on a weightbearing as tolerated basis. This is already begun although the patient has not yet made it to a point where she can ambulate outside the room. Physical therapy has recommended subacute rehabilitation placement and I think the family is amenable to this. - Time Time Spent: 50 to 70 Minutes Anticipated discharge: SNF Within: Other
[2018-05-01 06:52] LABS: ANION GAP 8 (5-19); BLOOD UREA NITROGEN 23 mg/dL (7-20); CALCIUM 9.3 mg/dL (8.4-10.2); CARBON DIOXIDE 27 mmol/L (22-30); CHLORIDE 107 mmol/L (98-107); GLUCOSE 107 mg/dL (75-110); POTASSIUM 3.9 mmol/L (3.6-5.0); SODIUM 141.8 mmol/L (137-145)
[2018-05-01] MEDS: OXYCODONE HCL IR 5 MG TABLET PO PRN ×2 (07:39→20:05)
[2018-05-01] MEDS: AMLODIPINE BESYLATE 5 MG TABLET PO SCH (09:16)
[2018-05-01] MEDS: ASPIRIN 81 MG TABLET, ENT COATED PO SCH (09:16)
[2018-05-01] MEDS: GABAPENTIN 300 MG CAPSULE PO SCH ×3 (09:17→19:38)
[2018-05-01] MEDS: CHOLECALCIFEROL (D3) 1,000 UNIT TABLET PO SCH (09:19)
--- NOTE | 2018-05-01 12:44 | PDOC PROGRESS REPORT ---
Subjective Progress Note for:: 05/01/18 Subjective:: This is 77 years old black female patient with past medical history of hypertension, hyperlipidemia presented with chief complaint of altered mental status. In a patient also found to have acute kidney injury, and hypokalemia of note patient had had left knee total arthroplasty at [facility] about 7 days ago. Hypokalemia has resolved and her kidney function is improving. Patient also has been evaluated by orthopedic surgeon. Physical therapy recommended acute short-term rehab. planner internship consulted and patient awaiting placement. Reason For Visit: AMS ARF KNEE PAIN Physical Exam Vital Signs: Temp Pulse Resp BP Pulse Ox 98.0 F 91 20 141/59 H 100 05/01/18 11:42 05/01/18 11:42 05/01/18 11:42 05/01/18 11:42 05/01/18 11:42 Intake & Output 04/30/18 05/01/18 05/02/18 06:59 06:59 06:59 Intake Total 500 3677 Output Total 1550 Balance 500 2127 Weight 77 kg 83.6 kg General appearance: PRESENT: no acute distress Head exam: PRESENT: atraumatic Eye exam: PRESENT: conjunctiva pink Mouth exam: PRESENT: moist Neck exam: ABSENT: carotid bruit, JVD, lymphadenopathy, thyromegaly Respiratory exam: PRESENT: clear to auscultation rosemary. ABSENT: rales, rhonchi, wheezes Cardiovascular exam: PRESENT: RRR. ABSENT: diastolic murmur, rubs, systolic murmur Musculoskeletal exam: PRESENT: other - Left knee tender and swollen. Results Laboratory Results: 04/30/18 06:18 05/01/18 05:59 05/01/18 05:59 Sodium 141.8 Potassium 3.9 Chloride 107 Carbon Dioxide 27 Anion Gap 8 BUN 23 H Creatinine 1.40 H Est GFR ( Amer) 44 L Est GFR (Non-Af Amer) 36 L Glucose 107 Calcium 9.3 04/29/18 19:33 Clean Catch Midstream Urine Culture - Final NO GROWTH 2 DAYS 04/29/18 04/29/18 04/30/18 18:05 18:05 00:17 Creatine Kinase 320 H 350 H CK-MB (CK-2) Troponin I 0.023 04/30/18 04/30/18 04/30/18 00:17 06:18 06:18 Creatine Kinase 350 H CK-MB (CK-2) 0.78 0.78 Troponin I 0.020 0.025 04/30/18 12 12:15 12:15 Creatine Kinase 305 H CK-MB (CK-2) 0.77 Troponin I 0.017 Impressions: Chest X-Ray 04/29/18 18:41 IMPRESSION: Chronic changes. No acute process. 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 No acute intracranial process. EVIDENCE OF ACUTE STROKE: NO. Assessment & Plan - Diagnosis (1) AMS due to drug-induced encephalopathy Is this a current diagnosis for this admission?: Yes Plan: Improving (2) Acute renal failure Is this a current diagnosis for this admission?: Yes Plan: Resolving (3) Hypokalemia Is this a current diagnosis for this admission?: Yes Plan: Resolved (4) Postop #7 L knee arthroplasty Is this a current diagnosis for this admission?: Yes Plan: Since the knee shows some swelling and inflammation orthopedic surgeon co nsulted. Physical therapist recommended short-term acute rehab placement.
[2018-05-01] MEDS: ATORVASTATIN CALCIUM 10 MG TABLET PO SCH (21:36)
[2018-05-01] MEDS: ACETAMINOPHEN 325 MG TABLET PO PRN (21:40)
[2018-05-02] MEDS: ACETAMINOPHEN 325 MG TABLET PO PRN (02:12)
[2018-05-02] MEDS: NORMAL SALINE 1000 ML 1,000 ML IV PRN (02:14)
[2018-05-02] MEDS: OXYCODONE HCL IR 5 MG TABLET PO PRN ×2 (05:04→15:42)
[2018-05-02] MEDS: HEPARIN SOD (PORCINE) 5,000 UNIT/ML 1 ML SYRINGE SUBCUT SCH ×3 (05:08→22:29)
[2018-05-02 06:27] LABS: ANION GAP 6 (5-19); BLOOD UREA NITROGEN 21 mg/dL (7-20); CALCIUM 9.4 mg/dL (8.4-10.2); CARBON DIOXIDE 30 mmol/L (22-30); CHLORIDE 105 mmol/L (98-107); GLUCOSE 110 mg/dL (75-110); POTASSIUM 3.4 mmol/L (3.6-5.0); SODIUM 140.8 mmol/L (137-145)
[2018-05-02] MEDS: CHOLECALCIFEROL (D3) 1,000 UNIT TABLET PO SCH (09:09)
[2018-05-02] MEDS: AMLODIPINE BESYLATE 5 MG TABLET PO SCH (09:09)
[2018-05-02] MEDS: GABAPENTIN 300 MG CAPSULE PO SCH ×3 (09:09→18:26)
[2018-05-02] MEDS: ASPIRIN 81 MG TABLET, ENT COATED PO SCH (09:09)
--- NOTE | 2018-05-02 17:15 | PDOC PROGRESS REPORT ---
Subjective Progress Note for:: 05/02/18 Subjective:: No adverse events overnight. No new complaints. Vital signs been stable. She is been eating and drinking without difficulty. She says she feels most likely it was her pain medication that made her altered at home and frightened her . Reason For Visit: AMS ARF KNEE PAIN Physical Exam Vital Signs: Temp Pulse Resp BP Pulse Ox 98.5 F 91 17 139/60 H 100 05/02/18 15:18 05/02/18 15:18 05/02/18 15:18 05/02/18 15:18 05/02/18 15:18 Intake & Output 05/01/18 05/02/18 05/03/18 06:59 06:59 06:59 Intake Total 3677 2162 923 Output Total 1550 1400 Balance 2127 762 923 Weight 83.6 kg 83 kg General appearance: PRESENT: no acute distress, cooperative, disheveled, morbidly obese Respiratory exam: PRESENT: clear to auscultation rosemary, symmetrical, unlabored. ABSENT: accessory muscle use, rales, rhonchi, tachypnea, wheezes Cardiovascular exam: PRESENT: RRR, +S1, +S2 Vascular exam: PRESENT: normal capillary refill GI/Abdominal exam: PRESENT: normal bowel sounds, soft. ABSENT: distended, guarding, rebound, tenderness Extremities exam: ABSENT: clubbing, pedal edema Musculoskeletal exam: PRESENT: normal inspection, other - Surgical incision is unremarkable Neurological exam: PRESENT: alert, awake, oriented to person, oriented to place, oriented to time, oriented to situation Psychiatric exam: PRESENT: appropriate affect, normal mood Skin exam: PRESENT: dry, warm Results Laboratory Results: 04/30/18 06:18 05/02/18 05:13 05/02/18 05:13 Sodium 140.8 Potassium 3.4 L Chloride 105 Carbon Dioxide 30 Anion Gap 6 BUN 21 H Creatinine 1.36 H Est GFR ( Amer) 46 L Est GFR (Non-Af Amer) 38 L Glucose 110 Calcium 9.4 04/29/18 04/29/18 04/30/18 18:05 18:05 00:17 Creatine Kinase 320 H 350 H CK-MB (CK-2) Troponin I 0.023 04/30/18 04/30/18 04/30/18 00:17 06:18 06:18 Creatine Kinase 350 H CK-MB (CK-2) 0.78 0.78 Troponin I 0.020 0.025 04/30/1818 12:15 12:15 Creatine Kinase 305 H CK-MB (CK-2) 0.77 Troponin I 0.017 Impressions: Chest X-Ray 04/29/18 18:41 IMPRESSION: Chronic changes. No acute process. 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 No acute intracranial process. EVIDENCE OF ACUTE STROKE: NO. Assessment & Plan - Diagnosis (1) AMS due to drug-induced encephalopathy Is this a current diagnosis for this admission?: Yes Plan: Resolved. She was recently admitted to the hospital for an elective knee replacement, and her family would like to see if we can get her into a alf facility for rehab. She apparently was having more trouble ambulating after the surgery than anticipated. - Time Time Spent with patient: 15-24 minutes
[2018-05-02] MEDS ORDERED: MORPHINE SULFATE 10 MG/ML INJ IV PRN ×2 (20:13)
[2018-05-02] MEDS: ATORVASTATIN CALCIUM 10 MG TABLET PO SCH (22:27)
[2018-05-03] MEDS: OXYCODONE HCL IR 5 MG TABLET PO PRN ×2 (01:30→09:54)
[2018-05-03] MEDS: MORPHINE SULFATE 10 MG/ML INJ IV PRN ×2 (02:18→11:43)
[2018-05-03] MEDS: HEPARIN SOD (PORCINE) 5,000 UNIT/ML 1 ML SYRINGE SUBCUT SCH ×2 (05:37→14:52)
--- NOTE | 2018-05-03 06:52 | PDOC PROGRESS REPORT ---
Subjective Progress Note for:: 05/03/18 Reason For Visit: AMS ARF KNEE PAIN 77-year-old black female now postop day 10 status post left knee arthroplasty at [facility]. Patient lying comfortably in bed. No physical therapy yesterday? Physical Exam Vital Signs: Temp Pulse Resp BP Pulse Ox 36.8 C 83 17 133/65 H 97 05/02/18 23:53 05/03/18 02:00 05/02/18 15:18 05/02/18 23:53 05/02/18 23:53 Intake & Output 05/01/18 05/02/18 05/03/18 06:59 06:59 06:59 Intake Total 3677 2162 2138 Output Total 1550 1400 Balance 2127 762 2138 Weight 83.6 kg 83 kg 81.5 kg General appearance: PRESENT: no acute distress, well-developed, well-nourished Head exam: PRESENT: normocephalic Respiratory exam: PRESENT: unlabored Cardiovascular exam: PRESENT: RRR Pulses: PRESENT: +1 pedal pulses bilateral Vascular exam: PRESENT: normal capillary refill GI/Abdominal exam: PRESENT: soft Rectal exam: PRESENT: deferred Extremities exam: PRESENT: other - Left knee dressing clean dry and intact. Minimal pedal edema. Distal neurovascular examination is intact. Neurological exam: PRESENT: alert, awake, oriented to person, oriented to place, oriented to time, oriented to situation. ABSENT: motor sensory deficit Psychiatric exam: PRESENT: appropriate affect, normal mood. ABSENT: homicidal ideation, suicidal ideation Skin exam: PRESENT: dry, intact, warm. ABSENT: cyanosis, rash Results Laboratory Results: 04/30/18 06:18 05/02/18 05:13 04/29/18 04/29/18 04/30/18 18:05 18:05 00:17 Creatine Kinase 320 H 350 H CK-MB (CK-2) Troponin I 0.023 04/30/18 04/30/18 04/30/18 00:17 06:18 06:18 Creatine Kinase 350 H CK-MB (CK-2) 0.78 0.78 Troponin I 0.020 0.025 04/30/18 04/30/18 12:15 12:15 Creatine Kinase 305 H CK-MB (CK-2) 0.77 Troponin I 0.017 Impressions: Chest X-Ray 04/29/18 18:41 IMPRESSION: Chronic changes. No acute process. 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 No acute intracranial process. EVIDENCE OF ACUTE STROKE: NO. Status: Imported from PACS Assessment & Plan - Diagnosis (1) History of left knee replacement Is this a current diagnosis for this admission?: Yes Plan: Patient to be mobilized with physical therapy and weightbearing as tolerated basis. Anticipate need for jail facility placement. Joint replacement center coordinator engaged. - Time Time Spent with patient: Less than 15 minutes Anticipated discharge: SNF Within: when bed available
[2018-05-03] MEDS: CHOLECALCIFEROL (D3) 1,000 UNIT TABLET PO SCH (09:40)
[2018-05-03] MEDS: GABAPENTIN 300 MG CAPSULE PO SCH ×3 (09:41→17:11)
[2018-05-03] MEDS: ASPIRIN 81 MG TABLET, ENT COATED PO SCH (09:42)
[2018-05-03] MEDS: AMLODIPINE BESYLATE 5 MG TABLET PO SCH (09:43)
--- NOTE | 2018-05-03 15:38 | PDOC TRANSFER SUMMARY ---
General - Admit/Disc Date/PCP Admission Date/Primary Care Provider: 04/29/18 21:50 ADORE MOHR MD Discharge Date: 05/03/18 - Discharge Diagnosis (1) AMS due to drug-induced encephalopathy Is this a current diagnosis for this admission?: Yes Summary: She had an encephalopathy from the pain medicine she was taking after her procedure. It resolved when we held her pain medication. She has been more judicious with the use of her pain medication and her pain has been well con trolled. - Additional Information Resuscitation Status: Full Code Discharge Diet: Cardiac Discharge Activity: Supervised Activity Prescriptions: Oxycodone HCl [Oxy-Ir 5 mg Tablet] 15 mg PO Q6HP PRN #20 tablet PRN Reason: For Pain Home Medications: Amlodipine Besylate [Norvasc 5 mg Tablet] 5 mg PO DAILY 08/29/12 Aspirin [Ecotrin 81 mg EC Tablet] 81 mg PO DAILY 08/29/12 Gabapentin [Neurontin 300 mg Capsule] 900 mg PO Q8 08/29/12 Pravastatin Sodium [Pravachol] 20 mg PO QHS 08/29/12 Cholecalciferol (Vitamin D3) [Vitamin D3] 2,000 unit PO Q48H 04/29/18 Losartan/Hydrochlorothiazide [Hyzaar 100-12.5 Tablet] 1 each PO DAILY 04/29/18 Timolol [Betimol] 1 drop OU BID 04/29/18 Dorzolamide HCl/Pf [Dorzolamide 2% Eye Drop] 1 drop OU BID 04/30/18 Oxycodone HCl [Oxy-Ir 5 mg Tablet] 15 mg PO Q6HP PRN #20 tablet 05/03/18 History of Present Illness Admission Date/PCP: 04/29/18 21:50 ADORE MOHR MD History of Present Illness: CAMILLE LOVE is a 77 year old female with a past medical history of hypertension who is postop day 6 from a left total knee at [facility]. She was discharged home with her who is noted confusion and poor p.o. intake over the last 48 hours prompting evaluation emergency room where she is found to have delirium, pain and swelling to the left knee without dehiscence, leukocytosis without fever, hypokalemia and acute renal failure. Patient denies headache, blurred vision, focal weakness, chest pain nausea vomiting shortness of breath. Patient's is at bedside who admits to compliance with medication regiment including benzodiazepine and oxycodone as needed but given as scheduled. She receives supportive care and referred to the hospitalist for admission. Hospital Course Hospital Course: We held her pain medication for a while and her mental status improved. She was judicious with her use of pain medication during her hospitalization and her pain was well controlled. She was eating and drinking without difficulty. She was seen in consultation by orthopedics and by physical therapy, and her knee incision looked fine and there was no concern about the joint, and she was determined to be a candidate for inpatient rehab. A bed was obtained at a [facility] facility and she is being transferred there this afternoon in good condition. Physical Exam Vital Signs: Temp Pulse Resp BP Pulse Ox 97.8 F 83 16 126/59 H 100 05/03/18 08:15 05/03/18 14:00 05/03/18 08:15 05/03/18 08:15 05/03/18 08:15 Intake & Output 05/02/18 05/03/18 05/04/18 06:59 06:59 06:59 Intake Total 2162 2138 Output Total 1400 Balance 762 2138 Weight 83 kg 81.5 kg General appearance: PRESENT: no acute distress, cooperative, disheveled, morbidly obese Respiratory exam: PRESENT: clear to auscultation rosemary, symmetrical, unlabored. ABSENT: accessory muscle use, rales, rhonchi, tachypnea, wheezes Cardiovascular exam: PRESENT: RRR, +S1, +S2 Vascular exam: PRESENT: normal capillary refill GI/Abdominal exam: PRESENT: normal bowel sounds, soft. ABSENT: distended, guarding, rebound, tenderness Extremities exam: ABSENT: clubbing, pedal edema Musculoskeletal exam: PRESENT: normal inspection, other - Surgical incision is unremarkable Neurological exam: PRESENT: alert, awake, oriented to person, oriented to place, oriented to time, oriented to situation Psychiatric exam: PRESENT: appropriate affect, normal mood Skin exam: PRESENT: dry, warm Results Laboratory Results: 04/30/18 06:18 05/02/18 05:13 04/29/18 04/29/18 04/30/18 18:05 18:05 00:17 Creatine Kinase 320 H 350 H CK-MB (CK-2) Troponin I 0.023 04/30/18 04/30/18 04/30/18 00:17 06:18 06:18 Creatine Kinase 350 H CK-MB (CK-2) 0.78 0.78 Troponin I 0.020 0.025 04/30/18 04/30/18 12:15 12:15 Creatine Kinase 305 H CK-MB (CK-2) 0.77 Troponin I 0.017 Impressions: Chest X-Ray 04/29/18 18:41 IMPRESSION: Chronic changes. No acute process. 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 No acute intracranial process. EVIDENCE OF ACUTE STROKE: NO. Transfer Plan - Time Spent with Patient Time spent with patient: Less than 30 Minutes Qualifiers - * PATIENT BEING DISCHARGED WITH ANY OF THE FOLLOWING DIAGNOSIS: No
[2018-05-03 16:24] VITALS: BP 131/58
== END 2018-05-03 18:29 | DRG 92 ==
LOC: ER 17:51 → EH 21:50 → 4N 04-30 00:05 → 4S 04-30 19:21
PROVIDERS: ADMIT Internal Medicine; ATTEND Internal Medicine
DX: G92 Toxic encephalopathy (principal); N17.9 Acute kidney failure, unspecified; T40.2X5A Adverse effect of other opioids, initial encounter; E87.6 Hypokalemia; E86.0 Dehydration; Z96.652 Presence of left artificial knee joint; I10 Essential (primary) hypertension; E78.5 Hyperlipidemia, unspecified; Y92.009 Unspecified place in unspecified non-institutional (private) residence as the place of occurrence of the external cause; Z79.82 Long term (current) use of aspirin; Z79.899 Other long term (current) drug therapy
CPT/HCPCS: 36415; 70450; 71046; 80048; 80053; 80307; 81001; 82550; 82553; 82803; 82962; 83605; 83735; 84443; 84484; 85025; 85610; 87040; 87086; 93005; 93010; 93971; 96360; 96361; 99285; G8978-GP; G8979-GP; J1644; J2270; J7030; J7040

== ENCOUNTER → 2018-07-10 | Outpatient (CLI) | payer MEDICARE, OTHER ==
--- NOTE | 2018-07-10 11:16 | RADIOLOGY REPORT (SQ) ---
EXAM DESCRIPTION: CT CHEST WITHOUT COMPLETED DATE/TIME: 07/10/2018 10:46 am REASON FOR STUDY: SOLITARY PULMONARY NODULE (R91.1) R91.1 SOLITARY PULMONARY NODULE COMPARISON: Chest films 08/29/2012, 03/05/2018, 04/29/2018 TECHNIQUE: CT scan performed of the chest without intravenous contrast. Images reviewed with lung, soft tissue and bone windows. Reconstructed coronal and sagittal MPR images reviewed. All images st ored on PACS. All CT scanners at this facility use dose modulation, iterative reconstruction, and/or weight based d osing when appropriate to reduce radiation dose to as low as reasonably achievable (ALARA). [facility]: Dose Right [facility]: CareDose [facility]: Dose Right [facility]: Teradose 4D [facility]: [employer] RADIATION DOSE: CT Rad equipment meets quality standard of care and radiation dose reduction techniq ues were employed. CTDIvol: 7.2 mGy. DLP: 261 mGy-cm. mGy. LIMITATIONS: No technical limitations. FINDINGS: LUNGS AND PLEURA: In the left upper lobe, a 14 mm nodule is present. This is well circums cribed with internal calcifications. This correlates with the nodule seen on chest film 03/05/2018. Review of chest film 08/29/2012, this nodule may be superimposed on the anterior left 3rd rib. PET-C T is recommended for further characterization. Remainder of the lungs demonstrate obstructive disease. There is an old right thoracotomy defect wit h sclerosis along the right anterior 5th rib, and bandlike scarring along the lingula and right upper lobe near the minor fissure. No acute infiltrates. No pleural effusions. No pneumothorax. HILAR AND MEDIASTINAL STRUCTURES: No identified masses or abnormal nodes. No obvious aneurysm. HEART AND VASCULAR STRUCTURES: No aneurysm. No pericardial effusion. UPPER ABDOMEN: No significant findings. Limited exam. THYROID AND OTHER SOFT TISSUES: Old post therapeutic changes deep right breast at the edge of the fie ld of view. BONES: No significant finding. HARDWARE: None in the chest. OTHER: No other significant findings. IMPRESSION: 14 mm nodule along the left upper lobe, bordering the major fissure. Prior to any attem pts at percutaneous biopsy, PET-CT should be considered. This nodule may have been present on prior chest films from 08/29/2012 TECHNICAL DOCUMENTATION: JOB ID: [id number] Quality ID # 436: Final reports with documentation of one or more dose reduction techniques (e.g., Au tomated exposure control, adjustment of the mA and/or kV according to patient size, use of iterative reconstruction technique) 2010 [employer]- All Rights Reserved Reading location - IP/workstation name: [email or web address]
== END ==
LOC: RAD 09:53
PROVIDERS: ATTEND Internal Medicine Hematology & Oncology
DX: R91.1 Solitary pulmonary nodule (principal); C90.00 Multiple myeloma not having achieved remission
CPT/HCPCS: 71250; 82565

== ENCOUNTER → 2018-10-05 | Outpatient (CLI) | payer MEDICARE, OTHER ==
--- NOTE | 2018-10-05 10:55 | RADIOLOGY REPORT (SQ) ---
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 Images reviewed with lung, soft tissue and bone windows. Reconstructed coronal and sagittal MPR images reviewed. All images st ored on PACS. All CT scanners at this facility use dose modulation, iterative reconstruction, and/or weight based d osing when appropriate to reduce radiation dose to as low as reasonably achievable (ALARA). [facility]: Dose Right [facility]: CareDose [facility]: Dose Right [facility]: Teradose 4D [facility]: [employer] RADIATION DOSE: CT Rad equipment meets quality standard of care and radiation dose reduction techniq ues were employed. CTDIvol: 7.4 mGy. DLP: 275 mGy-cm. mGy. LIMITATIONS: No technical limitations. FINDINGS: LUNGS AND PLEURA: Stable partially calcified nodule left upper lobe abutting the fissure m easuring 13 mm. No new nodules. Stable areas of scarring, right greater than left. No effusions. HILAR AND MEDIASTINAL STRUCTURES: No identified masses or abnormal nodes. No obvious aneurysm. HEART AND VASCULAR STRUCTURES: No aneurysm. No pericardial effusion. UPPER ABDOMEN: No significant findings. Limited exam. THYROID AND OTHER SOFT TISSUES: No masses. No adenopathy. BONES: No significant finding. HARDWARE: Right axillary clips. Stable benign right breast nodule. OTHER: No other significant findings. IMPRESSION: Stable partially calcified nodule, most likely a benign hamartoma or granuloma. TECHNICAL DOCUMENTATION: JOB ID: [id number] Quality ID # [id number]: Final reports with documentation of one or more dose reduction techniques (e.g., Au tomated exposure control, adjustment of the mA and/or kV according to patient size, use of iterative reconstruction technique) 2010 [employer]- All Rights Reserved Reading location - IP/workstation name: [email or web address]
== END ==
LOC: RAD 08:48
PROVIDERS: ATTEND Internal Medicine Hematology & Oncology
DX: C90.00 Multiple myeloma not having achieved remission (principal); R91.1 Solitary pulmonary nodule; N63.10 Unspecified lump in the right breast, unspecified quadrant
CPT/HCPCS: 71250

== ENCOUNTER → 2018-10-30 | Outpatient (CLI) | payer MEDICARE, OTHER ==
[2018-10-30 11:36] LABS: ABSOLUTE EOSINOPHILS # (AUTO) 0.2 10^3/uL (0.0-0.6); ABSOLUTE LYMPHOCYTES (AUTO) 1.2 10^3/uL (0.5-4.7); ABSOLUTE MONOCYTES (AUTO) 0.6 10^3/uL (0.1-1.4); ABSOLUTE NEUT (AUTO) 8.2 10^3/uL (1.7-8.2); BASOPHILS % (AUTO) 0.2 % (0-2); EOSINOPHILS % (AUTO) 1.7 % (0-6); HEMATOCRIT 36.2 % (36.0-47.0); HEMOGLOBIN 11.6 g/dL (12.0-15.5); LYMPHOCYTES % (AUTO) 12.1 % (13-45); MEAN CORPUSCULAR HEMOGLOBIN 27.6 pg (27.0-33.4); MEAN CORPUSCULAR VOLUME 86 fl (80-97); MONOCYTES % (AUTO) 5.7 % (3-13); PLATELET COUNT 250 10^3/uL (150-450); RED BLOOD COUNT 4.21 10^6/uL (3.72-5.28); RED CELL DISTRIBUTION WIDTH 14.2 % (11.5-14.0); SEGMENTED NEUTROPHILS % (AUTO) 80.3 % (42-78); TOTAL CELLS COUNTED % (AUTO) 100 %; WHITE BLOOD COUNT 10.2 10^3/uL (4.0-10.5)
[2018-10-30 11:48] LABS: APPEARANCE,URINE CLEAR; BILIRUBIN,URINE NEGATIVE (NEGATIVE); COLOR,URINE YELLOW; GLUCOSE, URINE NEGATIVE (NEGATIVE); KETONES,URINE NEGATIVE (NEGATIVE); LEUKOCYTE ESTERASE,URINE TRACE (NEGATIVE); NITRITE,URINE NEGATIVE (NEGATIVE); PROTEIN,URINE NEGATIVE (NEGATIVE); URINE SPECIFIC GRAVITY 1.018; UROBILINOGEN,URINE NEGATIVE mg/dL (<2.0)
[2018-10-30 12:05] LABS: ANION GAP 8 (5-19); BLOOD UREA NITROGEN 38 mg/dL (7-20); CALCIUM 9.5 mg/dL (8.4-10.2); CARBON DIOXIDE 31 mmol/L (22-30); CHLORIDE 103 mmol/L (98-107); GLUCOSE 112 mg/dL (75-110); PHOSPHORUS 4.4 mg/dL (2.5-4.5); POTASSIUM 5.2 mmol/L (3.6-5.0)
[2018-10-31 12:37] LABS: CREATININE URINE 111.9 mg/dL (Not Estab.); MICROALBUMIN URINE 3.5 ug/mL (Not Estab.)
== END ==
LOC: OD 10:49
PROVIDERS: ATTEND Internal Medicine Nephrology
DX: E55.9 Vitamin D deficiency, unspecified (principal)
CPT/HCPCS: 36415; 80048; 81001; 82040; 82043; 82306; 82570; 83970; 84100; 85025

== ENCOUNTER → 2018-11-14 | Outpatient (CLI) | payer MEDICARE ==
[2018-11-14 11:44] LABS: ANION GAP 9 (5-19); BLOOD UREA NITROGEN 23 mg/dL (7-20); CALCIUM 9.9 mg/dL (8.4-10.2); CARBON DIOXIDE 31 mmol/L (22-30); CHLORIDE 100 mmol/L (98-107); GLUCOSE 103 mg/dL (75-110); POTASSIUM 4.3 mmol/L (3.6-5.0); SODIUM 140.3 mmol/L (137-145)
== END ==
LOC: OD 10:30
PROVIDERS: ATTEND Internal Medicine Nephrology
DX: N17.9 Acute kidney failure, unspecified (principal); I12.9 Hypertensive chronic kidney disease with stage 1 through stage 4 chronic kidney disease, or unspecified chronic kidney disease; N18.3 Chronic kidney disease, stage 3 (moderate)
CPT/HCPCS: 36415; 80048

== ENCOUNTER → 2019-01-28 | Outpatient (CLI) | payer MEDICARE, OTHER ==
--- NOTE | 2019-01-28 13:40 | WOMENS IMAGING REPORT ---
EXAM DESCRIPTION: 3D SCREENING MAMMO BILAT COMPLETED DATE/TIME: 01/28/2019 11:03 am REASON FOR STUDY: Z12.31 SCREENING MAMMO Z12.31 ENCNTR SCREEN MAMMOGRAM FOR MALIGNANT NEOPLASM OF B RE COMPARISON: 01/25/2018 and 01/10/2017. EXAM PARAMETERS: Standard craniocaudal and mediolateral oblique views of each breast recorded using digital acquisition and breast tomosynthesis. Read with the assistance of CAD. .[facility] - [employer] Person Version 9.2 LIMITATIONS: None. FINDINGS: Findings present which are benign by mammographic criteria. No suspicious masses, calcific ations or architectural distortion. Pertinent benign findings: Stable surgical changes in the right breast. Benign mammographic findings may include one or more of the following: Smooth masses, popcorn/rim/coa rse calcifications, asymmetries, post-procedure changes, and lesions with long-standing stability. IMPRESSION: BENIGN MAMMOGRAPHIC FINDINGS. BIRADS 2 BREAST DENSITY: a. The breasts are almost entirely fatty. BIRAD: ASSESSMENT: 2 BENIGN FINDING(S) RECOMMENDATION: ROUTINE SCREENING COMMENT: The patient has been notified of the results by letter per MQSA requirements. Additional no tification policies are in place for contacting patient with suspicious or incomplete findings. Quality ID #225: The [employer] recommends an annual screening mammogram for women aged 40 years or over. This facility utilizes a reminder system to ensure that all patients receive reminder letters, and/or direct phone calls for appointments. This includes reminders for routine scr eening mammograms, diagnostic mammograms, or other Breast Imaging Interventions when appropriate. Th is patient will be placed in the appropriate reminder system. TECHNICAL DOCUMENTATION: FINDING NUMBER: (1) ASSESSMENT: (1) JOB ID: [id number] [employer]- All Rights Reserved Reading location - IP/workstation name: [email or web address]
== END ==
LOC: WI 10:30
PROVIDERS: ATTEND Internal Medicine Hematology & Oncology
DX: Z12.31 Encounter for screening mammogram for malignant neoplasm of breast (principal)
CPT/HCPCS: 77063; 77067

== ENCOUNTER → 2019-02-28 | Outpatient (CLI) | payer MEDICARE, OTHER ==
[2019-02-28 10:23] LABS: ANION GAP 9 (5-19); BLOOD UREA NITROGEN 31 mg/dL (7-20); CALCIUM 9.7 mg/dL (8.4-10.2); CARBON DIOXIDE 30 mmol/L (22-30); CHLORIDE 106 mmol/L (98-107); GLUCOSE 106 mg/dL (75-110); POTASSIUM 4.9 mmol/L (3.6-5.0)
== END ==
LOC: OD 09:11
PROVIDERS: ATTEND Internal Medicine Nephrology
DX: N17.9 Acute kidney failure, unspecified (principal); I12.9 Hypertensive chronic kidney disease with stage 1 through stage 4 chronic kidney disease, or unspecified chronic kidney disease; N18.3 Chronic kidney disease, stage 3 (moderate)
CPT/HCPCS: 36415; 80048

== ENCOUNTER → 2019-03-25 | Outpatient (CLI) | payer MEDICARE, OTHER ==
--- NOTE | 2019-03-25 15:44 | RADIOLOGY REPORT (SQ) ---
EXAM DESCRIPTION: BONE SURVEY COMPLETE COMPLETED DATE/TIME: 03/25/2019 3:14 pm REASON FOR STUDY: *METASTATIC* MULTIPLE MYELOMA (C90.00) C90.00 MULTIPLE MYELOMA NOT HAVING ACHIEVE D REMISSION COMPARISON: Bone survey 03/05/2018, 11/17/2014 CT chest 10/05/2018 CT brain 04/29/2018 TECHNIQUE: Images of the axial and proximal appendicular skeleton are obtained, along with lateral s kull and frontal chest films. LIMITATIONS: None. FINDINGS: AP CHEST: Stable 15 mm nodule left upper lobe compared to multiple previous studies. Stab le bandlike scarring in the right upper lobe along the minor fissure. No acute infiltrates. No pleu ral effusion. No pneumothorax. Right breast surgical clips. No acute bony findings. No bony lytic lesions over the chest. LATERAL SKULL: No worrisome bone lesions. Benign calcified meningioma [facility] CT exam AP BOTH HUMERI: No worrisome bone lesions. TWO-VIEW LUMBAR SPINE: No worrisome bone lesions. Diffuse facet arthropathy TWO-VIEW THORACIC SPINE: No worrisome bone lesions. TWO VIEW CERVICAL SPINE: Multilevel disc space narrowing AP PELVIS: No worrisome bone lesions. AP BOTH FEMURS: No worrisome bone lesions. OTHER: No other significant finding. IMPRESSION: NO WORRISOME BONE LESIONS. TECHNICAL DOCUMENTATION: JOB ID: [id number]- All Rights Reserved Reading location - IP/workstation name: [email or web address]
== END ==
LOC: RAD 14:21
PROVIDERS: ATTEND Nurse Practitioner Family
DX: C90.00 Multiple myeloma not having achieved remission (principal)
CPT/HCPCS: 77075

== ENCOUNTER → 2019-10-11 | Outpatient (CLI) | payer MEDICARE, OTHER ==
[2019-10-11 11:02] LABS: ABSOLUTE EOSINOPHILS # (AUTO) 0.2 10^3/uL (0.0-0.6); ABSOLUTE LYMPHOCYTES (AUTO) 0.9 10^3/uL (0.5-4.7); ABSOLUTE MONOCYTES (AUTO) 0.5 10^3/uL (0.1-1.4); ABSOLUTE NEUT (AUTO) 5.5 10^3/uL (1.7-8.2); BASOPHILS % (AUTO) 0.2 % (0-2); EOSINOPHILS % (AUTO) 2.5 % (0-6); HEMATOCRIT 35.9 % (36.0-47.0); HEMOGLOBIN 11.6 g/dL (12.0-15.5); LYMPHOCYTES % (AUTO) 13.2 % (13-45); MEAN CORPUSCULAR HGB CONC 32.4 g/dL (32.0-36.0); MEAN CORPUSCULAR VOLUME 86 fl (80-97); MONOCYTES % (AUTO) 7.2 % (3-13); PLATELET COUNT 244 10^3/uL (150-450); RED BLOOD COUNT 4.16 10^6/uL (3.72-5.28); RED CELL DISTRIBUTION WIDTH 14.4 % (11.5-14.0); SEGMENTED NEUTROPHILS % (AUTO) 76.9 % (42-78); TOTAL CELLS COUNTED % (AUTO) 100 %; WHITE BLOOD COUNT 7.1 10^3/uL (4.0-10.5)
[2019-10-11 11:06] LABS: APPEARANCE,URINE SLIGHTLY-CLOUDY; BILIRUBIN,URINE NEGATIVE (NEGATIVE); COLOR,URINE YELLOW; GLUCOSE, URINE NEGATIVE (NEGATIVE); KETONES,URINE NEGATIVE (NEGATIVE); LEUKOCYTE ESTERASE,URINE SMALL (NEGATIVE); NITRITE,URINE NEGATIVE (NEGATIVE); PROTEIN,URINE 30 mg/dL (NEGATIVE); URINE SPECIFIC GRAVITY 1.021; UROBILINOGEN,URINE NEGATIVE mg/dL (<2.0)
[2019-10-11 11:26] LABS: ANION GAP 9 (5-19); BLOOD UREA NITROGEN 12 mg/dL (7-20); CALCIUM 8.7 mg/dL (8.4-10.2); CARBON DIOXIDE 29 mmol/L (22-30); CHLORIDE 102 mmol/L (98-107); GLUCOSE 111 mg/dL (75-110); POTASSIUM 3.6 mmol/L (3.6-5.0)
[2019-10-12 15:36] LABS: CREATININE URINE 313.3 mg/dL (Not Estab.); MICROALBUMIN URINE 26.6 ug/mL (Not Estab.)
== END ==
LOC: OD 10:16
PROVIDERS: ATTEND Internal Medicine Nephrology
DX: I12.9 Hypertensive chronic kidney disease with stage 1 through stage 4 chronic kidney disease, or unspecified chronic kidney disease (principal); N18.3 Chronic kidney disease, stage 3 (moderate); D63.1 Anemia in chronic kidney disease
CPT/HCPCS: 36415; 80048; 81001; 82043; 82570; 85025

== ENCOUNTER → 2020-01-27 | Outpatient (CLI) | payer MEDICARE ==
--- NOTE | 2020-01-27 09:34 | WOMENS IMAGING REPORT ---
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 LIMITATIONS: None. FINDINGS: LUMBAR SPINE: The bone mineral density (BMD) measured from L1-L4 in the AP projection correlates with a T-score of -0.2, which is normal as defined by the World Health Organization. BMD Change vs Baseline: 6.6% HIP: The bone mineral density (BMD) measured in the left hip correlates with a T-score of -2.1 in the neck , which is osteopenia as defined by the World Health Organization. BMD Change vs Baseline: N/A 10 year Fracture Risk Assessment: Major Osteoporotic Fracture: 6.5% without prior fracture. 9.5% with prior fracture. Hip Fracture: 1.6% without prior fracture. 2.1% with prior fracture. IMPRESSION: 1. LUMBAR SPINE WHO CLASSIFICATION: NORMAL. 2. HIP WHO CLASSIFICATION: OSTEOPENIA. OVERALL ASSESSMENT: WHO CLASSIFICATION: OSTEOPENIA. COMMENT: The World Health Organization defines low BMD as follows: T-score: Normal: At or above -1.0 Osteopenia: Between -1.0 and -2.5 Osteoporosis: At or below -2.5 without fractures Established osteoporosis: At or below -2.5 with fractures In general, you may wish to consider: Diagnosis Treatment Follow-up DEXA Normal BMD Prevention 2-3 years Osteopenia Prevention/Therapy 1-2 years Osteoporosis Therapy Yearly TECHNICAL DOCUMENTATION: JOB ID: [id number] 2010 [employer]- All Rights Reserved Reading location - IP/workstation name: [facility]
== END ==
LOC: WI 08:44
PROVIDERS: ATTEND Internal Medicine Hematology & Oncology
DX: M81.0 Age-related osteoporosis without current pathological fracture (principal); N95.9 Unspecified menopausal and perimenopausal disorder
CPT/HCPCS: 77080

== ENCOUNTER → 2020-02-03 | Outpatient (CLI) | payer MEDICARE ==
--- NOTE | 2020-02-03 16:15 | WOMENS IMAGING REPORT ---
EXAM DESCRIPTION: 3D SCREENING MAMMO BILAT IMAGES COMPLETED DATE/TIME: 02/03/2020 2:00 pm REASON FOR STUDY: Z12.31 ENCNTR SCREEN MAMMOGRAM FOR MALIGNANT NEOPLASM OF BREAST Z12.31 ENCNTR SCR EEN MAMMOGRAM FOR MALIGNANT NEOPLASM OF ÓSCAR COMPARISON: 2016 and subsequent. EXAM PARAMETERS: Standard craniocaudal and mediolateral oblique views of each breast recorded using digital acquisition and breast tomosynthesis. Read with the assistance of CAD. .[facility] - [employer] Worker Version 9.2 LIMITATIONS: None. FINDINGS: Findings present which are benign by mammographic criteria. No suspicious masses, calcific ations or architectural distortion. Pertinent benign findings: Postlumpectomy changes in the right breast. Focal rounded region with dis tortion and surgical clips. Stable appearance. Benign mammographic findings may include one or more of the following: Smooth masses, popcorn/rim/coa rse calcifications, asymmetries, post-procedure changes, and lesions with long-standing stability. IMPRESSION: BENIGN MAMMOGRAPHIC FINDINGS. BIRADS 2 BREAST DENSITY: b. There are scattered areas of fibroglandular density. BIRAD: ASSESSMENT: 2 BENIGN FINDING(S) RECOMMENDATION: ROUTINE SCREENING COMMENT: The patient has been notified of the results by letter per MQSA requirements. Additional no tification policies are in place for contacting patient with suspicious or incomplete findings. Quality ID #225: The [place] [employer] recommends an annual screening mammogram for women aged 40 years or over. This facility utilizes a reminder system to ensure that all patients receive reminder letters, and/or direct phone calls for appointments. This includes reminders for routine scr eening mammograms, diagnostic mammograms, or other Breast Imaging Interventions when appropriate. Th is patient will be placed in the appropriate reminder system. TECHNICAL DOCUMENTATION: FINDING NUMBER: (1) ASSESSMENT: (1) JOB ID: [id number] 2010 [employer]- All Rights Reserved Reading location - IP/workstation name: [email or web address]
== END ==
LOC: WI 13:16
PROVIDERS: ATTEND Internal Medicine Hematology & Oncology
DX: Z12.31 Encounter for screening mammogram for malignant neoplasm of breast (principal)
CPT/HCPCS: 77063; 77067

== ENCOUNTER → 2020-05-29 | Outpatient (CLI) | payer MEDICARE, OTHER ==
[2020-05-29 13:49] LABS: APPEARANCE,URINE SLIGHTLY-CLOUDY; BILIRUBIN,URINE NEGATIVE (NEGATIVE); COLOR,URINE YELLOW; GLUCOSE, URINE NEGATIVE (NEGATIVE); KETONES,URINE NEGATIVE (NEGATIVE); LEUKOCYTE ESTERASE,URINE SMALL (NEGATIVE); NITRITE,URINE NEGATIVE (NEGATIVE); PROTEIN,URINE 30 mg/dL (NEGATIVE); URINE SPECIFIC GRAVITY 1.013; UROBILINOGEN,URINE NEGATIVE mg/dL (<2.0)
[2020-05-29 13:55] LABS: ABSOLUTE EOSINOPHILS # (AUTO) 0.2 10^3/uL (0.0-0.6); ABSOLUTE LYMPHOCYTES (AUTO) 1.1 10^3/uL (0.5-4.7); ABSOLUTE MONOCYTES (AUTO) 0.5 10^3/uL (0.1-1.4); ABSOLUTE NEUT (AUTO) 7.2 10^3/uL (1.7-8.2); BASOPHILS % (AUTO) 0.3 % (0-2); EOSINOPHILS % (AUTO) 1.8 % (0-6); HEMATOCRIT 37.9 % (36.0-47.0); HEMOGLOBIN 12.3 g/dL (12.0-15.5); LYMPHOCYTES % (AUTO) 12.2 % (13-45); MEAN CORPUSCULAR HEMOGLOBIN 29.4 pg (27.0-33.4); MEAN CORPUSCULAR HGB CONC 32.5 g/dL (32.0-36.0); MEAN CORPUSCULAR VOLUME 91 fl (80-97); MONOCYTES % (AUTO) 5.9 % (3-13); PLATELET COUNT 222 10^3/uL (150-450); RED BLOOD COUNT 4.18 10^6/uL (3.72-5.28); RED CELL DISTRIBUTION WIDTH 13.7 % (11.5-14.0); SEGMENTED NEUTROPHILS % (AUTO) 79.8 % (42-78); TOTAL CELLS COUNTED % (AUTO) 100 %; WHITE BLOOD COUNT 9.1 10^3/uL (4.0-10.5)
[2020-05-29 14:20] LABS: ALBUMIN 4.5 g/dL (3.5-5.0); ANION GAP 10 (5-19); BLOOD UREA NITROGEN 22 mg/dL (7-20); CALCIUM 9.9 mg/dL (8.4-10.2); CARBON DIOXIDE 33 mmol/L (22-30); CHLORIDE 100 mmol/L (98-107); GLUCOSE 118 mg/dL (75-110); PHOSPHORUS 4.4 mg/dL (2.5-4.5); POTASSIUM 3.8 mmol/L (3.6-5.0)
[2020-05-31 07:37] LABS: CREATININE URINE 83.9 mg/dL (Not Estab.); MICROALBUMIN URINE 16.7 ug/mL (Not Estab.)
== END ==
LOC: OD 12:49
PROVIDERS: ATTEND Internal Medicine Nephrology
DX: N18.30 Chronic kidney disease, stage 3 unspecified (principal); D63.1 Anemia in chronic kidney disease
CPT/HCPCS: 36415; 80069; 81001; 82043; 82306; 82570; 83970; 85025

== ENCOUNTER → 2020-06-01 | Outpatient (CLI) | payer MEDICARE, OTHER ==
--- NOTE | 2020-06-01 16:59 | RADIOLOGY REPORT (SQ) ---
EXAM DESCRIPTION: BONE SURVEY COMPLETE IMAGES COMPLETED DATE/TIME: 06/01/2020 2:07 pm REASON FOR STUDY: (C90.00)MULTIPLE MYELOMA NOT HAVING ACHIEVED REMISSION C90.00 MULTIPLE MYELOMA NO T HAVING ACHIEVED REMISSION COMPARISON: 03/25/2019 and 03/05/2018. TECHNIQUE: Images of the axial and proximal appendicular skeleton are obtained, along with lateral s kull and frontal chest films. LIMITATIONS: None. FINDINGS: AP CHEST: No bony findings. Chronic scarring in the lungs. Stable nodule in the left mid lung. LATERAL SKULL: No worrisome bone lesions. AP BOTH HUMERI: No worrisome bone lesions. TWO-VIEW LUMBAR SPINE: No worrisome bone lesions. Chronic degenerative changes. TWO-VIEW THORACIC SPINE: No worrisome bone lesions. Chronic degenerative changes. AP PELVIS: No worrisome bone lesions. AP BOTH FEMURS: No worrisome bone lesions. OTHER: No other significant finding. IMPRESSION: NO WORRISOME BONE LESIONS. TECHNICAL DOCUMENTATION: JOB ID: [id number] 2010 [employer]- All Rights Reserved Reading location - IP/workstation name: [email or web address]
== END ==
LOC: RAD 15:02
PROVIDERS: ATTEND Nurse Practitioner Family
DX: C90.00 Multiple myeloma not having achieved remission (principal)
CPT/HCPCS: 77075